=== PATIENT | male | born 1990 | race Caucasian/White ===

== ENCOUNTER 2018-10-26 20:16 | Emergency (ER) | payer MEDICAID ==
[2018-10-26] MEDS ORDERED: HYDROCODON-ACE1 EAC2 PO (20:42)
== END 2018-10-26 21:08 | disposition home or self-care (01) ==
LOC: D.ER 20:16
DX: M54.5 Low back pain (principal); G89.29 Other chronic pain

== ENCOUNTER 2018-11-05 16:03 | Emergency (ER) | payer MEDICAID ==
[~2018-11-05] VITALS: Ht 177.8 cm; Wt 70.5 kg
[~2018-11-05 16:03] MED LIST: HYDROCODON-ACE1 EAC2 PO
[2018-11-05 16:17] VITALS: Ht 177.8 cm; Wt 70.5 kg
[2018-11-05] MEDS ORDERED: TALWIN NX1 TAB PO (20:08)
[2018-11-05] MEDS ORDERED: VOLTAREN75 MG PO (20:08)
[2018-11-05 21:00] VITALS: BP 126/66
== END 2018-11-05 21:00 | disposition home or self-care (01) ==
LOC: D.ER 16:03
DX: M54.5 Low back pain (principal); F17.200 Nicotine dependence, unspecified, uncomplicated

== ENCOUNTER 2018-11-09 16:42 | Emergency (ER) | payer MEDICAID ==
[~2018-11-09 16:42] MED LIST changes: +TALWIN NX1 TAB PO; +VOLTAREN75 MG PO
[2018-11-09 16:45] VITALS: BMI 23.0
[2018-11-09] MEDS ORDERED: CYCLOBENZAPRINE10 MG PO (18:06)
[2018-11-09] MEDS ORDERED: LYRICA75 MG PO (18:06)
[2018-11-09 18:25] VITALS: BP 109/64
== END 2018-11-09 18:26 | disposition home or self-care (01) ==
LOC: D.ER 16:42
DX: M54.5 Low back pain (principal)